=== PATIENT | male | born 1945 | race Caucasian/White ===

== ENCOUNTER → 2017-09-06 | Outpatient (CLI) | payer MEDICARE, OTHER ==
[~2017-09-06] MED LIST: ASPIR 8181 MG PO; AVAPRO 150 MG150 M1 PO; CENTRUM SILVER1 EAC4 PO; FLONASE 0.05%50 MCG NASAL; IBUPROFEN 200200 M1 PO
== END ==
LOC: M.ULTRA 15:11
DX: R22.0 Localized swelling, mass and lump, head (principal); Z88.6 Allergy status to analgesic agent; Z91.012 Allergy to eggs

== ENCOUNTER → 2017-11-07 | Outpatient (CLI) | payer MEDICARE, OTHER | LOC: M.CT 11:31 | DX: K42.9 Umbilical hernia without obstruction or gangrene (principal) ==

== ENCOUNTER → 2018-09-18 | Outpatient (CLI) | payer MEDICARE, OTHER | LOC: M.ULTRA 13:00 | DX: M25.812 Other specified joint disorders, left shoulder (principal); Z88.8 Allergy status to other drugs, medicaments and biological substances; Z88.1 Allergy status to other antibiotic agents; Z91.012 Allergy to eggs ==